=== PATIENT | male | born 1935 | race American Indian/Alaskan Native ===

== ENCOUNTER 2019-04-03 13:51 | Inpatient (IN) | payer MEDICARE, OTHER ==
[2019-04-03] MEDS ORDERED: PIPERACILLIN/TAZOBACTAM 3.375 3.375 GM/50 ML BAG IV ONE (14:22)
[2019-04-03] MEDS ORDERED: SODIUM CHLORIDE 0.9% 1000 ML 1,000 ML IV ONE ×2 (14:22)
--- NOTE | 2019-04-03 14:27 | Emergency Department Report ---
ED General Adult HPI - General Chief complaint: Altered Mental Status Stated complaint: UNRESPONSIVE Time Seen by Provider: 04/03/19 14:07 Source: family Mode of arrival: Stretcher Limitations: Altered Mental Status - History of Present Illness Initial comments: Patient is a 83 years old male with history of advanced dementia, CVA, hypertension and diabetes. Patient is a DO NOT RESUSCITATE, confirmed by his daughters who are resent at bedside and a DO NOT RESUSCITATE paper on file. Patient is brought to the emergency room from respite care for evaluation of altered mental status, decreased blood pressure, fever and low oxygen saturation. Symptoms started last night. Patient found to have a blood pressure of 72/36, heart rate of 136 and initial oxygen saturation of 78% improved to 100% on a nonrebreather. Patient found to be in septic shock. I thoroughly discuss the patient critical condition with his daughters. Both daughters advised not to intubate, no CPR and no shocking. They stated that they only want fluids and antibiotic and comfort measures. Patient is started on normal saline, Zosyn, Tylenol and continued on and nonrebreather. Severity scale (0 -10): 0 - Related Data Allergies Allergy/AdvReac Type Severity Reaction Status Date / Time levofloxacin [From Levaquin] Allergy Rash Verified 04/03/19 13:53 ED Review of Systems ROS: Stated complaint: UNRESPONSIVE Other details as noted in HPI Comment: Unobtainable due to pts medical conditions ED Past Medical Hx - Past Medical History Previous Medical History?: Yes Hx Hypertension: Yes Hx CVA: Yes (x 2. 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 - Surgical History Past Surgical History?: Yes Additional Surgical History: family states cannot remember what for ED Physical Exam - General Limitations: Altered Mental Status General appearance: obtunded - Head Head exam: Present: atraumatic, normocephalic, normal inspection - Eye Eye exam: Present: normal appearance - ENT ENT exam: Present: mucous membranes dry - Neck Neck exam: Present: normal inspection - Respiratory Respiratory exam: Present: normal lung sounds bilaterally - Cardiovascular Cardiovascular Exam: Present: tachycardia - GI/Abdominal GI/Abdominal exam: Present: soft, normal bowel sounds. Absent: distended, tenderness, guarding, rebound, rigid, organomegaly, mass, bruit, pulsatile mass, hernia - exam: Present: normal inspection. Absent: testicular tenderness, urethral discharge, scrotal swelling, circumcision External exam: Present: normal external exam - Extremities Exam Extremities exam: Present: normal inspection - Neurological Exam Neurological exam: Present: altered - Skin Skin exam: Present: warm, dry, intact ED Course Vital Signs 04/03/19 04/03/19 04/03/19 13:56 14:00 14:08 Temperature 101.2 F H Pulse Rate 141 H 147 H 139 H Respiratory 28 H 27 H 26 H Rate Blood Pressure O2 Sat by Pulse Oximetry 04/03/19 04/03/19 04/03/19 14:15 14:30 14:45 Temperature Pulse Rate 138 H 136 H 140 H Respiratory 32 H 28 H 25 H Rate Blood Pressure 73/34 73/34 68/39 O2 Sat by Pulse 100 86 94 Oximetry 04/03/19 04/03/19 04/03/19 15:00 15:16 15:30 Temperature Pulse Rate 139 H 140 H 142 H Respiratory 24 26 H 26 H Rate Blood Pressure 68/39 72/32 72/32 O2 Sat by Pulse 98 100 Oximetry 04/03/19 04/03/19 16:40 16:41 Temperature 100.0 F H Pulse Rate 137 H Respiratory 25 H Rate Blood Pressure 68/44 O2 Sat by Pulse 100 Oximetry - Consultations Consultation #1: 04/03/19 18:13 I discussed the patient with Dr. Prieto from [facility]. She advised that patient can be admitted to [facility] and she will follow up with the patient in the morning for further management. - Central Line Placement Right Femoral Consent Obtained: emergent situation Time Out Performed: Yes Patient Placed on Monitor/Pulse Ox: Yes Prep: mask, gown, gloves Central Line Prep: Povidone-Iodine 1%, Chlorhexidine scrub, sterile drapes applied Local Anesthesia Used: Lidocaine 2% Central Line Lumen Inserted: triple Central Line Position: good blood return, all ports aspirated, flus, sutured in place with 2-0 Dressing Applied: Tegaderm, sterile gauze/tape Patient Tolerated Procedure: well, no complications Complications: none ED Medical Decision Making - Lab Data Result diagrams: 04/03/19 15:22 04/03/19 15:22 - EKG Data -: EKG Interpreted by Me EKG shows normal: sinus rhythm Rate: tachycardia - Radiology Data Radiology results: report reviewed - Medical Decision Making Patient is a 83 years old male with history of advanced dementia, CVA, hype rtension and diabetes. Patient is a DO NOT RESUSCITATE, confirmed by his daughters who are resent at bedside and a DO NOT RESUSCITATE paper on file. Patient is brought to the emergency room from respite care for evaluation of altered mental status, decreased blood pressure, fever and low oxygen sa turation. Symptoms started last night. Patient found to have a blood pressure of 72/36, heart rate of 136 and initial oxygen saturation of 78% improved to 100% on a nonrebreather. Patient found to be in septic shock. I thoroughly discuss the patient critical condition with his daughters. Both daughters advised not to intubate, no CPR and no shocking. They stated that they only want fluids and antibiotic and comfort measures. Patient is started on normal saline, Zosyn, Tylenol and continued on and nonrebreather. Labs reviewed and showed hypernatremia, acute renal failure. Patient continued on normal saline with improvement in blood pressure. Patient lactic acid is 9. I discussed the patient with Dr. Zelaya, he agreed to admit the patient to medical service and further management. Critical Care Time: Yes Critical care time in (mins) excluding proc time.: 45 Critical care attestation.: If time is entered above; I have spent that time in minutes in the direct care of this critically ill patient, excluding procedure time. ED Disposition Clinical Impression: Sepsis, Hypernatremia, Acute on chronic renal failure Disposition: OP ADMIT IP TO THIS HOSP Is pt being admited?: Yes Condition: Stable
[2019-04-03] MEDS ORDERED: ACETAMINOPHEN 500 MG TAB PO ONE (14:29)
[2019-04-03] MEDS ORDERED: ACETAMINOPHEN 650 MG RECT SUPP PR ONE (14:35)
[2019-04-03 15:51] LABS: Mean Corpuscular HGB Conc 29 % (32-34); Mean Corpuscular Volume 75 fl (84-94); Platelet Count 144 K/mm3 (140-440); Red Blood Count 4.15 M/mm3 (3.65-5.03); Red Cell Distribution Width 18.2 % (13.2-15.2)
[2019-04-03 15:58] LABS: Calcium 8.7 mg/dL (8.4-10.2)
[2019-04-03 16:00] LABS: Hematocrit 31.2 % (35.5-45.6); Hemoglobin 9.2 gm/dl (11.8-15.2)
[2019-04-03 16:10] LABS: Albumin 3.1 g/dL (3.9-5); Bilirubin,Direct 0.4 mg/dL (0-0.2)
--- NOTE | 2019-04-03 17:01 | XRay Report ---
CHEST 1 VIEW INDICATION / CLINICAL INFORMATION: sepsis. COMPARISON: None available. FINDINGS: SUPPORT DEVICES: None. HEART / MEDIASTINUM: No significant abnormality. LUNGS / PLEURA: Patchy ill-defined airspace density throughout both lower lungs. Signer Name: Selwyn Polanco MD Signed: 04/03/2019 4:57 PM Workstation Name: [id number]
[2019-04-03 19:08] LABS: Eosinophils % (Manual) 0 % (0.0-4.3); Monocytes % (Manual) 0 % (0.0-7.3)
[2019-04-03 19:09] LABS: Band Neutrophils # (Manual) 0.6 K/mm3; Total Cells Counted 100
[2019-04-03 19:10] LABS: Anisocytosis 1+
[2019-04-03 19:11] LABS: Large Platelets Few; Platelet Estimate Consistent w Auto; Tear Drop Cells Rare
[2019-04-03] MEDS ORDERED: NORepinephrine/NS 4 MG-250 ML 4 MG/250 ML BAG IV ONE (19:38)
[2019-04-03] MEDS: NORepinephrine/NS 4 MG-250 ML 4 MG/250 ML BAG IV SCH (19:42)
[2019-04-03] MEDS ORDERED: ONDANSETRON 4 MG/2 ML INJ IV PRN (19:48)
[2019-04-03] MEDS ORDERED: ACETAMINOPHEN 325 MG TAB PO PRN (19:48)
[2019-04-03] MEDS ORDERED: oxyCODONE /ACETAMINOPHEN 5-325MG TAB PO PRN (19:48)
[2019-04-03] MEDS ORDERED: HYDROmorphone 1 MG/1 ML INJ IV PRN (19:48)
--- NOTE | 2019-04-03 19:48 | History and Physical Report ---
History of Present Illness Date of examination: 04/03/19 Date of admission: 04/03/19 16:46 Chief complaint: Decreased responsiveness since last night History of present illness: 83-year-old male with cerebrovascular accident, hypertension hyperlipidemia, diabetes and chronic kidney disease comes in for decreased mental status feeling very weak and decreased responsiveness. In the emergency room patient's blood pressure was very low and oxygen saturations were around 78%. Patient also had a high heart rate of 136 and fever. Fever started yest erday. Daughter is at bedside and wants DO NOT RESUSCITATE status but gives if necessary. No chest pain. No shortness of breath. Patient with decreased responsiveness. Past Medical History Previous Medical History?: Yes Hypertension: Yes CVA: He is x 2. 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 Surgical History Past Surgical History?: Yes Social history no smoking or drugs Family history Htn Review systems ROS: Stated complaint: UNRESPONSIVE Other details as noted in HPI Comment: Unobtainable due to pts medical conditions Medications and Allergies Allergies Allergy/AdvReac Type Severity Reaction Status Date / Time levofloxacin [From Levaquin] Allergy Rash Verified 04/03/19 13:53 Home Medications Medication Instructions Recorded Confirmed Last Taken Type Aspirin 325 mg PO QDAY 04/03/19 04/03/19 Unknown History AtorvaSTATin [Lipitor] 40 mg PO QHS 04/03/19 04/03/19 Unknown History B12/Iodin/Mag/Zinc/Haritha/Yyhm232 1 each PO QDAY 04/03/19 04/03/19 Unknown History [Adrenoid Capsule] Guaifenesin/Pseudoephedrne HCl 1 each PO BID 04/03/19 04/03/19 Unknown History [Mucinex D ER 600-60 mg Tablet] Hyoscyamine Subl [Levsin Sl 0.125 0.125 mg SL Q4HR PRN 04/03/19 04/03/19 Unknown History TAB] Losartan [Cozaar] 25 mg PO QDAY 04/03/19 04/03/19 Unknown History Sertraline [Zoloft] 50 mg PO QDAY 04/03/19 04/03/19 Unknown History Vit D3/Folic Acid/B2/B6/B12 1 each PO QDAY 04/03/19 04/03/19 Unknown History [Folgard Tablet] Active Meds: Active Medications Norepinephrine (Levophed Drip 4 Mg/Ns 250 Ml) 4 mg in 250 mls @ 7.5 mls/hr IV TITR LEVAR; Protocol Last Admin: 04/03/19 19:42 Dose: 4 mcg/min, 15 mls/hr Documented by: Exam - Constitutional Vitals: Temp Pulse Resp BP Pulse Ox 100.0 F H 138 H 32 H 72/39 99 04/03/19 16:40 04/03/19 19:15 04/03/19 19:15 04/03/19 19:15 04/03/19 18:45 General appearance: Present: no acute distress, well-nourished - EENT Eyes: Present: PERRL ENT: hearing intact, clear oral mucosa - Neck Neck: Present: supple, normal ROM - Respiratory Respiratory effort: normal Respiratory: bilateral: CTA - Cardiovascular Heart rate: 76 Rhythm: regular Heart Sounds: Present: S1 & S2. Absent: rub, click - Extremities Extremities: no ischemia, pulses intact, pulses symmetrical, No edema Peripheral Pulses: within normal limits - Abdominal General gastrointestinal: Present: soft, non-tender, non-distended, normal bowel sounds Male genitourinary: Present: normal - Integumentary Integumentary: Present: clear, warm, dry - Musculoskeletal Musculoskeletal: gait normal, strength equal bilaterally - Psychiatric Psychiatric: appropriate mood/affect, intact judgment & insight - Neurologic Neurologic: CNII-XII intact, moves all extremities - Allied Health Allied health notes reviewed: nursing, case management (hospital. He is) Results - Labs CBC & Chem 7: 04/03/19 15:22 04/03/19 15:22 Labs: Laboratory Last Values WBC 12.1 K/mm3 (4.5-11.0) H 04/03/19 15:22 RBC 4.15 M/mm3 (3.65-5.03) 04/03/19 15:22 Hgb 9.2 gm/dl (11.8-15.2) L 04/03/19 15:22 Hct 31.2 % (35.5-45.6) L 04/03/19 15:22 MCV 75 fl (84-94) L 04/03/19 15:22 MCH 22 pg (28-32) L 04/03/19 15:22 MCHC 29 % (32-34) L 04/03/19 15:22 RDW 18.2 % (13.2-15.2) H 04/03/19 15:22 Plt Count 144 K/mm3 (140-440) 04/03/19 15:22 Lymph % (Auto) Fixture Repairer Fabricator 04/03/19 15:22 [place] % (Auto) Fixture Repairer Fabricator 04/03/19 15:22 Eos % (Auto) Fixture Repairer Fabricator 04/03/19 15:22 Baso % (Auto) Fixture Repairer Fabricator 04/03/19 15:22 Lymph # Fixture Repairer Fabricator 04/03/19 15:22 [place] # Fixture Repairer Fabricator 04/03/19 15:22 Eos # Fixture Repairer Fabricator 04/03/19 15:22 Baso # Fixture Repairer Fabricator 04/03/19 15:22 Add Manual Diff Complete 04/03/19 15:22 Total Counted 100 04/03/19 15:22 Seg Neutrophils % Fixture Repairer Fabricator 04/03/19 15:22 Seg Neuts % (Manual) 84.0 % (40.0-70.0) H 04/03/19 15:22 Band Neutrophils % 5.0 % 04/03/19 15:22 Lymphocytes % (Manual) 4.0 % (13.4-35.0) L 04/03/19 15:22 Reactive Lymphs % (Man) 0 % 04/03/19 15:22 Monocytes % (Manual) 0 % (0.0-7.3) 04/03/19 15:22 Eosinophils % (Manual) 0 % (0.0-4.3) 04/03/19 15:22 Basophils % (Manual) 1.0 % (0.0-1.8) 04/03/19 15:22 Metamyelocytes % 6.0 % 04/03/19 15:22 Myelocytes % 0 % 04/03/19 15:22 Promyelocytes % 0 % 04/03/19 15:22 Blast Cells % 0 % 04/03/19 15:22 Nucleated RBC % Not Reportable 04/03/19 15:22 Seg Neutrophils # Fixture Repairer Fabricator 04/03/19 15:22 Seg Neutrophils # Man 10.2 K/mm3 (1.8-7.7) H 04/03/19 15:22 Band Neutrophils # 0.6 K/mm3 04/03/19 15:22 Lymphocytes # (Manual) 0.5 K/mm3 (1.2-5.4) L 04/03/19 15:22 Abs React Lymphs (Man) 0.0 K/mm3 04/03/19 15:22 Monocytes # (Manual) 0.0 K/mm3 (0.0-0.8) 04/03/19 15:22 Eosinophils # (Manual) 0.0 K/mm3 (0.0-0.4) 04/03/19 15:22 Basophils # (Manual) 0.1 K/mm3 (0.0-0.1) 04/03/19 15:22 Metamyelocytes # 0.7 K/mm3 04/03/19 15:22 Myelocytes # 0.0 K/mm3 04/03/19 15:22 Promyelocytes # 0.0 K/mm3 04/03/19 15:22 Blast Cells # 0.0 K/mm3 04/03/19 15:22 WBC Morphology Not Reportable 04/03/19 15:22 Hypersegmented Neuts Not Reportable 04/03/19 15:22 Hyposegmented Neuts Not Reportable 04/03/19 15:22 Hypogranular Neuts Not Reportable 04/03/19 15:22 Smudge Cells Not Reportable 04/03/19 15:22 Toxic Granulation Not Reportable 04/03/19 15:22 Toxic Vacuolation Not Reportable 04/03/19 15:22 Dohle Bodies Not Reportable 04/03/19 15:22 Pelger-Huet Anomaly Not Reportable 04/03/19 15:22 Manisha Rods Not Reportable 04/03/19 15:22 Platelet Estimate Consistent w auto 04/03/19 15:22 Clumped Platelets Not Reportable 04/03/19 15:22 Plt Clumps, EDTA Not Reportable 04/03/19 15:22 Large Platelets Few 04/03/19 15:22 Giant Platelets Not Reportable 04/03/19 15:22 Platelet Satelliting Not Reportable 04/03/19 15:22 Plt Morphology Comment Not Reportable 04/03/19 15:22 RBC Morphology Not Reportable 04/03/19 15:22 Dimorphic RBCs Not Reportable 04/03/19 15:22 Polychromasia Not Reportable 04/03/19 15:22 Hypochromasia Not Reportable 04/03/19 15:22 Poikilocytosis Not Reportable 04/03/19 15:22 Anisocytosis 1+ 04/03/19 15:22 Microcytosis Not Reportable 04/03/19 15:22 Macrocytosis Not Reportable 04/03/19 15:22 Spherocytes Not Reportable 04/03/19 15:22 Pappenheimer Bodies Not Reportable 04/03/19 15:22 Sickle Cells Not Reportable 04/03/19 15:22 Target Cells Not Reportable 04/03/19 15:22 Tear Drop Cells Rare 04/03/19 15:22 Ovalocytes Not Reportable 04/03/19 15:22 Helmet Cells Not Reportable 04/03/19 15:22 [employer] Bodies Not Reportable 04/03/19 15:22 [place] Rings Not Reportable 04/03/19 15:22 Toney Cells Not Reportable 04/03/19 15:22 Bite Cells Not Reportable 04/03/19 15:22 Crenated Cell Not Reportable 04/03/19 15:22 Elliptocytes Few 04/03/19 15:22 Acanthocytes (Spur) Not Reportable 04/03/19 15:22 Rouleaux Not Reportable 04/03/19 15:22 Hemoglobin C Crystals Not Reportable 04/03/19 15:22 Schistocytes Not Reportable 04/03/19 15:22 Malaria parasites Not Reportable 04/03/19 15:22 Enrique Bodies Not Reportable 04/03/19 15:22 Hem Pathologist Commnt No 04/03/19 15:22 Sodium 148 mmol/L (137-145) H 04/03/19 15:22 Potassium 4.3 mmol/L (3.6-5.0) 04/03/19 15:22 Chloride 108.1 mmol/L (98-107) H 04/03/19 15:22 Carbon Dioxide 19 mmol/L (22-30) L 04/03/19 15:22 Anion Gap 25 mmol/L 04/03/19 15:22 BUN 40 mg/dL (9-20) H 04/03/19 15:22 Creatinine 3.5 mg/dL (0.8-1.5) H 04/03/19 15:22 Estimated GFR 17 ml/min 04/03/19 15:22 BUN/Creatinine Ratio 11 % 04/03/19 15:22 Glucose 104 mg/dL (75-100) H 04/03/19 15:22 POC Glucose 78 (70-105) 04/03/19 14:05 Lactic Acid 9.40 mmol/L (0.7-2.0) H* 04/03/19 17:43 Calcium 8.7 mg/dL (8.4-10.2) 04/03/19 15:22 Total Bilirubin 0.70 mg/dL (0.1-1.2) 04/03/19 15:22 Direct Bilirubin 0.4 mg/dL (0-0.2) H 04/03/19 15:22 Indirect Bilirubin 0.3 mg/dL 04/03/19 15:22 AST 296 units/L (5-40) H 04/03/19 15:22 ALT 102 units/L (7-56) H 04/03/19 15:22 Alkaline Phosphatase 218 units/L (35-129) H 04/03/19 15:22 Total Protein 6.7 g/dL (6.3-8.2) 04/03/19 15:22 Albumin 3.1 g/dL (3.9-5) L 04/03/19 15:22 Albumin/Globulin Ratio 0.9 % 04/03/19 15:22 Short CBC 04/03/19 Range/Units 15:22 WBC 12.1 H (4.5-11.0) K/mm3 Hgb 9.2 L (11.8-15.2) gm/dl Hct 31.2 L (35.5-45.6) % Plt Count 144 (140-440) K/mm3 BMP 04/03/19 15:22 Sodium 148 H Potassium 4.3 Chloride 108.1 H Carbon Dioxide 19 L BUN 40 H Creatinine 3.5 H Glucose 104 H Calcium 8.7 Liver Function 04/03/19 Range/Units 15:22 Total Bilirubin 0.70 (0.1-1.2) mg/dL Direct Bilirubin 0.4 H (0-0.2) mg/dL AST 296 H (5-40) units/L ALT 102 H (7-56) units/L Alkaline Phosphatase 218 H (35-129) units/L Albumin 3.1 L (3.9-5) g/dL - Imaging and Cardiology EKG: report reviewed Chest x-ray: report reviewed Imaging and Cardiology: Chest x-ray LUNGS / PLEURA: Patchy ill-defined airspace density throughout both lower lungs. Assessment and Plan Assessment and plan: critical care time 40 minutes Advance Directives: Yes (DO NOT RESUSCITATE) VTE prophylaxis?: Chemical Plan of care discussed with patient/family: Yes - Patient Problems (1) Sepsis Current Visit: Yes Status: Acute Plan to address problem: secondary to bilateral pneumonia IV fluids Started IV cefepime and IV vancomycin IV Levophed started (2) Acute on chronic renal failure Current Visit: Yes Status: Acute (3) Hypernatremia Current Visit: Yes Status: Acute Plan to address problem: D5W for now (4) Hypotension Current Visit: Yes Status: Acute Qualifiers: Hypotension type: other hypotension type Qualified Code(s): I95.89 - Other hypotension Plan to address problem: Secondary to sepsis IV fluids and IV Pressors (5) CVA (cerebral vascular accident) Current Visit: Yes Status: Chronic Qualifiers: Laterality of affected vessel: bilateral Plan to address problem: Supportive care (6) Type 2 diabetes mellitus Current Visit: Yes Status: Chronic Qualifiers: Diabetes mellitus snf insulin use: unspecified buttermaker continuous churn insulin use status Plan to address problem: Sliding scale insulin coverage (7) Elevated lactic acid level Current Visit: Yes Status: Acute Plan to address problem: Secondary to sepsis (8) Hypertension Current Visit: Yes Status: Chronic Qualifiers: Hypertension type: essential hypertension Qualified Code(s): I10 - Essential (primary) hypertension Plan to address problem: Patient is hypotensives hold antihypertensives (9) DVT prophylaxis Current Visit: Yes Status: Acute Plan to address problem: Heparin and GI prophylaxis started
[2019-04-03] MEDS ORDERED: D5W/0.9% NACL 1,000 ML IV SCH (20:00)
[2019-04-03] MEDS ORDERED: CEFEPIME/NS 1 GM/100 ML 1 GM/100 ML BAG IV SCH ×2 (21:00→22:00)
[2019-04-03] MEDS ORDERED: VANCOMYCIN PHARMACY TO DOSE IV SCH (21:00)
[2019-04-03] MEDS ORDERED: VANCOMYCIN 1,250 MG in SODIUM CHLORIDE 0.9% 250ML 250 ML IV ONE (21:00)
[2019-04-03] MEDS ORDERED: DEXTROSE 5% IN WATER 1,000 ML IV SCH (22:00)
[2019-04-03] MEDS: FAMOTIDINE 20 MG/2 ML INJ IV SCH (23:11)
[2019-04-03] MEDS: INSULIN LISPRO 100 UNIT/ML SUB-Q SCH (23:28)
[2019-04-04] MEDS ORDERED: SODIUM CHLORIDE 0.9% 500 ML 500 ML IV ONE (00:26)
[2019-04-04] MEDS: NORepinephrine/NS 4 MG-250 ML 4 MG/250 ML BAG IV SCH ×4 (00:47→08:29)
[2019-04-04] MEDS: PHENYLEPHRINE 100 MG in SODIUM CHLORIDE 0.9% 90 ML IV SCH ×2 (01:52→22:17)
[2019-04-04] MEDS: INSULIN LISPRO 100 UNIT/ML SUB-Q SCH ×3 (05:30→18:36)
[2019-04-04 05:49] LABS: Mean Corpuscular HGB Conc 30 % (32-34); Mean Corpuscular Volume 74 fl (84-94); Platelet Count 150 K/mm3 (140-440); Red Cell Distribution Width 18.4 % (13.2-15.2)
[2019-04-04 05:59] LABS: Hematocrit 30.9 % (35.5-45.6); Hemoglobin 9.2 gm/dl (11.8-15.2)
[2019-04-04 06:01] LABS: Albumin 2.9 g/dL (3.9-5); Calcium 7.5 mg/dL (8.4-10.2)
[2019-04-04 06:49] LABS: Anisocytosis 1+; Band Neutrophils # (Manual) 0.5 K/mm3; Basophils % (Manual) 0 % (0.0-1.8); Eosinophils % (Manual) 0 % (0.0-4.3); Platelet Estimate Consistent w Auto; Total Cells Counted 200
--- NOTE | 2019-04-04 08:51 | Progress Note ---
Assessment and Plan Assessment and plan: --Sepsis Shock Current Visit: Yes Status: Acute secondary to bilateral pneumonia IV fluids Started, IV cefepime and IV vancomycin IV Levophed started --Bilateral pneumonia ; Current Visit: Yes Status: Acute Empiric IV antibiotics, follow cultures Oxygen titrated to O2 sats more than 90%. ID evaluation if needed --lactic acidosis: Secondary to sepsis closely monitor. --Transaminitis; Unknown baseline probably secondary to hypo perfusion Closely monitor liver function tests. --Acute on chronic renal failure Closely monitor renal function avoid nephrotoxins --Severe Malnutrition; Nutrition supplements and supportive care -- Hypernatremia Current Visit: Yes Status: Acute D5W for now, improved , closely monitor --DNR status Monitor clinically and adjust management as needed. Patient is critically ill. poor Prognosis Follow-up consults and recommendations Critical care time 35 minutes History Interval history: Patient seen and examined medical records reviewed Patient admitted with septic shock, sepsis, bilateral pneumonia On multiple vasopressors Patient looks critically ill, minimally communicative Vital signs reviewed Hospitalist Physical - Constitutional Vitals: Temp Pulse Resp BP Pulse Ox 99.3 F 144 H 24 84/51 92 04/03/19 21:16 04/04/19 08:30 04/04/19 08:30 04/04/19 08:30 04/04/19 08:30 General appearance: Present: mild distress, well-nourished - EENT Eyes: Present: PERRL, EOM intact - Neck Neck: Present: supple, normal ROM - Respiratory Respiratory effort: normal Respiratory: bilateral: diminished, rhonchi, negative: rales, wheezing - Cardiovascular Rhythm: regular Heart Sounds: Present: S1 & S2 - Extremities Extremities: no ischemia, No edema - Abdominal General gastrointestinal: soft, non-tender, non-distended, normal bowel sounds - Integumentary Integumentary: Present: clear, warm - Psychiatric Psychiatric: cooperative - Neurologic Neurologic: moves all extremities Results - Labs CBC & Chem 7: 04/04/19 05:00 04/04/19 05:00 Labs: Laboratory Last Values WBC 31.0 K/mm3 (4.5-11.0) H 04/04/19 05:00 RBC 4.20 M/mm3 (3.65-5.03) 04/04/19 05:00 Hgb 9.2 gm/dl (11.8-15.2) L 04/04/19 05:00 Hct 30.9 % (35.5-45.6) L 04/04/19 05:00 MCV 74 fl (84-94) L 04/04/19 05:00 MCH 22 pg (28-32) L 04/04/19 05:00 MCHC 30 % (32-34) L 04/04/19 05:00 RDW 18.4 % (13.2-15.2) H 04/04/19 05:00 Plt Count 150 K/mm3 (140-440) 04/04/19 05:00 Lymph % (Auto) [facility] 04/04/19 05:00 Grant % (Auto) [facility] 04/04/19 05:00 Eos % (Auto) [facility] 04/04/19 05:00 Baso % (Auto) [facility] 04/04/19 05:00 Lymph # [facility] 04/04/19 05:00 Grant # [facility] 04/04/19 05:00 Eos # [facility] 04/04/19 05:00 Baso # [facility] 04/04/19 05:00 Add Manual Diff Complete 04/04/19 05:00 Total Counted 200 04/04/19 05:00 Seg Neutrophils % [facility] 04/04/19 05:00 Seg Neuts % (Manual) 92.5 % (40.0-70.0) H 04/04/19 05:00 Band Neutrophils % 1.5 % 04/04/19 05:00 Lymphocytes % (Manual) 4.0 % (13.4-35.0) L 04/04/19 05:00 Reactive Lymphs % (Man) 0 % 04/04/19 05:00 Monocytes % (Manual) 2.0 % (0.0-7.3) 04/04/19 05:00 Eosinophils % (Manual) 0 % (0.0-4.3) 04/04/19 05:00 Basophils % (Manual) 0 % (0.0-1.8) 04/04/19 05:00 Metamyelocytes % 0 % 04/04/19 05:00 Myelocytes % 0 % 04/04/19 05:00 Promyelocytes % 0 % 04/04/19 05:00 Blast Cells % 0 % 04/04/19 05:00 Nucleated RBC % Not Reportable 04/04/19 05:00 Seg Neutrophils # [facility] 04/04/19 05:00 Seg Neutrophils # Man 28.7 K/mm3 (1.8-7.7) H 04/04/19 05:00 Band Neutrophils # 0.5 K/mm3 04/04/19 05:00 Lymphocytes # (Manual) 1.2 K/mm3 (1.2-5.4) 04/04/19 05:00 Abs React Lymphs (Man) 0.0 K/mm3 04/04/19 05:00 Monocytes # (Manual) 0.6 K/mm3 (0.0-0.8) 04/04/19 05:00 Eosinophils # (Manual) 0.0 K/mm3 (0.0-0.4) 04/04/19 05:00 Basophils # (Manual) 0.0 K/mm3 (0.0-0.1) 04/04/19 05:00 Metamyelocytes # 0.0 K/mm3 04/04/19 05:00 Myelocytes # 0.0 K/mm3 04/04/19 05:00 Promyelocytes # 0.0 K/mm3 04/04/19 05:00 Blast Cells # 0.0 K/mm3 04/04/19 05:00 WBC Morphology Not Reportable 04/04/19 05:00 Hypersegmented Neuts Not Reportable 04/04/19 05:00 Hyposegmented Neuts Not Reportable 04/04/19 05:00 Hypogranular Neuts Not Reportable 04/04/19 05:00 Smudge Cells Not Reportable 04/04/19 05:00 Toxic Granulation Not Reportable 04/04/19 05:00 Toxic Vacuolation Not Reportable 04/04/19 05:00 Dohle Bodies Not Reportable 04/04/19 05:00 Pelger-Huet Anomaly Not Reportable 04/04/19 05:00 Manisha Rods Not Reportable 04/04/19 05:00 Platelet Estimate Consistent w auto 04/04/19 05:00 Clumped Platelets Not Reportable 04/04/19 05:00 Plt Clumps, EDTA Not Reportable 04/04/19 05:00 Large Platelets Not Reportable 04/04/19 05:00 Giant Platelets Not Reportable 04/04/19 05:00 Platelet Satelliting Not Reportable 04/04/19 05:00 Plt Morphology Comment Not Reportable 04/04/19 05:00 RBC Morphology Not Reportable 04/04/19 05:00 Dimorphic RBCs Not Reportable 04/04/19 05:00 Polychromasia Not Reportable 04/04/19 05:00 Hypochromasia Not Reportable 04/04/19 05:00 Poikilocytosis Not Reportable 04/04/19 05:00 Anisocytosis 1+ 04/04/19 05:00 Microcytosis Not Reportable 04/04/19 05:00 Macrocytosis Not Reportable 04/04/19 05:00 Spherocytes Not Reportable 04/04/19 05:00 Pappenheimer Bodies Not Reportable 04/04/19 05:00 Sickle Cells Not Reportable 04/04/19 05:00 Target Cells Not Reportable 04/04/19 05:00 Tear Drop Cells Not Reportable 04/04/19 05:00 Ovalocytes Not Reportable 04/04/19 05:00 Helmet Cells Not Reportable 04/04/19 05:00 Edgar-Pima Bodies Not Reportable 04/04/19 05:00 [place] Rings Not Reportable 04/04/19 05:00 Toney Cells Not Reportable 04/04/19 05:00 Bite Cells Not Reportable 04/04/19 05:00 Crenated Cell Not Reportable 04/04/19 05:00 Elliptocytes Not Reportable 04/04/19 05:00 Acanthocytes (Spur) Not Reportable 04/04/19 05:00 Rouleaux Not Reportable 04/04/19 05:00 Hemoglobin C Crystals Not Reportable 04/04/19 05:00 Schistocytes Not Reportable 04/04/19 05:00 Malaria parasites Not Reportable 04/04/19 05:00 Enrique Bodies Not Reportable 04/04/19 05:00 Hem Pathologist Commnt No 04/04/19 05:00 Sodium 145 mmol/L (137-145) 04/04/19 05:00 Potassium 4.5 mmol/L (3.6-5.0) 04/04/19 05:00 Chloride 107.0 mmol/L (98-107) 04/04/19 05:00 Carbon Dioxide 16 mmol/L (22-30) L 04/04/19 05:00 Anion Gap 27 mmol/L 04/04/19 05:00 BUN 53 mg/dL (9-20) H 04/04/19 05:00 Creatinine 4.3 mg/dL (0.8-1.5) H 04/04/19 05:00 Estimated GFR 16 ml/min 04/04/19 05:00 BUN/Creatinine Ratio 12 % 04/04/19 05:00 Glucose 195 mg/dL (75-100) H 04/04/19 05:00 POC Glucose 128 (70-105) H 04/04/19 04:51 Hemoglobin A1c 6.5 % (4-6) H 04/03/19 21:52 Lactic Acid 6.00 mmol/L (0.7-2.0) H* 04/04/19 05:00 Calcium 7.5 mg/dL (8.4-10.2) L 04/04/19 05:00 Total Bilirubin 0.60 mg/dL (0.1-1.2) 04/04/19 05:00 Direct Bilirubin 0.4 mg/dL (0-0.2) H 04/03/19 15:22 Indirect Bilirubin 0.3 mg/dL 04/03/19 15:22 AST 277 units/L (5-40) H 04/04/19 05:00 ALT 81 units/L (7-56) H 04/04/19 05:00 Alkaline Phosphatase 147 units/L (35-129) H 04/04/19 05:00 Total Protein 6.2 g/dL (6.3-8.2) L 04/04/19 05:00 Albumin 2.9 g/dL (3.9-5) L 04/04/19 05:00 Albumin/Globulin Ratio 0.9 % 04/04/19 05:00 Active Medications - Current Medications Current Medications: Generic Name Dose Route Start Last Admin Trade Name Freq PRN Reason Stop Dose Admin Acetaminophen 650 mg 04/03/19 19:48 Tylenol PO Q4H PRN Pain MILD(1-3)/Fever >100.5/VIDES Famotidine 10 mg 04/03/19 22:00 04/03/19 23:11 Pepcid IV 10 mg BID LEVAR Administration Hydromorphone HCl 0.25 mg 04/03/19 19:48 Dilaudid IV Q3H PRN Pain, Moderate (4-6) Norepinephrine 4 mg in 250 mls @ 7.5 mls/hr 04/03/19 20:00 04/04/19 08:29 Levophed Drip 4 Mg/Ns 250 Ml IV 04/04/19 19:59 30 mcg/min TITR LEVAR 112.5 mls/hr Administration Protocol 2 MCG/MIN Dextrose 1,000 mls @ 150 mls/hr 04/03/19 22:00 04/03/19 23:12 D5w IV 150 mls/hr DIRECT LEVAR Administration Phenylephrine HCl 100 mg/ 100 mls @ 3 mls/hr 04/04/19 01:35 04/04/19 08:30 Sodium Chloride IV 80 mcg/min TITR LEVAR 4.8 mls/hr Titration Protocol 50 MCG/MIN Cefepime HCl 2 gm in 100 mls @ 200 mls/hr 04/04/19 10:00 Cefepime/Ns 2 Gm/100 Ml IV Q24HR LEVAR Protocol Norepinephrine 8 mg/ Sodium 250 mls @ 3.75 mls/hr 04/04/19 09:00 Chloride IV TITR LEVAR Protocol 2 MCG/MIN Insulin Human Lispro 0 unit 04/04/19 00:00 04/04/19 05:30 Humalog SUB-Q Not Given Q6HR LEVAR Protocol Ondansetron HCl 4 mg 04/03/19 19:48 Zofran IV Q8H PRN Nausea And Vomiting Oxycodone/Acetaminophen 1 tab 04/03/19 19:48 Percocet 5/325 PO Q6H PRN Pain, Moderate (4-6) Sodium Chloride 10 ml 04/03/19 22:00 04/03/19 22:51 Sodium Chloride Flush Syringe 10 Ml IV 10 ml BID LEVAR Administration Sodium Chloride 10 ml 04/03/19 19:48 Sodium Chloride Flush Syringe 10 Ml IV PRN PRN LINE FLUSH
--- NOTE | 2019-04-04 09:18 | Consultation ---
History of Present Illness Consult date: 04/04/19 Requesting physician: RADHA MARRERO History of present illness: 83-year-old male with cerebrovascular accident, hypertension hy perlipidemia, diabetes and chronic kidney disease comes in for decreased mental status feeling very weak and decreased responsiveness. In the emergency room patient's blood pressure was very low and oxygen saturations were around 78%. Patient also had a high heart rate of 136 and fever. Fever started yesterday. Admitted to the ICU on 100% NRBM, on norepinephrine and encephalopathic. I have been consulted for critical care management Patient was seen and examined. Vitals, labs, medications, chart and imaging reviewed. Daughter and is at the bedside Medications and Allergies Allergies Allergy/AdvReac Type Severity Reaction Status Date / Time levofloxacin [From Levaquin] Allergy Rash Verified 04/03/19 13:53 Home Medications Medication Instructions Recorded Confirmed Last Taken Type Aspirin 325 mg PO QDAY 04/03/19 04/03/19 Unknown History AtorvaSTATin [Lipitor] 40 mg PO QHS 04/03/19 04/03/19 Unknown History B12/Iodin/Mag/Zinc/Haritha/[id number] 1 each PO QDAY 04/03/19 04/03/19 Unknown History [Adrenoid Capsule] Guaifenesin/Pseudoephedrne HCl 1 each PO BID 04/03/19 04/03/19 Unknown History [Mucinex D ER 600-60 mg Tablet] Hyoscyamine Subl [Levsin Sl 0.125 0.125 mg SL Q4HR PRN 04/03/19 04/03/19 Unknown History TAB] Losartan [Cozaar] 25 mg PO QDAY 04/03/19 04/03/19 Unknown History Sertraline [Zoloft] 50 mg PO QDAY 04/03/19 04/03/19 Unknown History Vit D3/Folic Acid/B2/B6/B12 1 each PO QDAY 04/03/19 04/03/19 Unknown History [Folgard Tablet] Active Meds: Active Medications Acetaminophen (Tylenol) 650 mg PO Q4H PRN PRN Reason: Pain MILD(1-3)/Fever >100.5/VIDES Famotidine (Pepcid) 10 mg IV BID LEVAR Last Admin: 04/03/19 23:11 Dose: 10 mg Documented by: Hydromorphone HCl (Dilaudid) 0.25 mg IV Q3H PRN PRN Reason: Pain, Moderate (4-6) Norepinephrine (Levophed Drip 4 Mg/Ns 250 Ml) 4 mg in 250 mls @ 7.5 mls/hr IV TITR LEVAR; Protocol Stop: 04/04/19 19:59 Last Admin: 04/04/19 08:29 Dose: 30 mcg/min, 112.5 mls/hr Documented by: Dextrose (D5w) 1,000 mls @ 150 mls/hr IV DIRECT LEVAR Last Admin: 04/03/19 23:12 Dose: 150 mls/hr Documented by: Phenylephrine HCl 100 mg/ (Sodium Chloride) 100 mls @ 3 mls/hr IV TITR LEVAR; Protocol Last Titration: 04/04/19 08:30 Dose: 80 mcg/min, 4.8 mls/hr Documented by: Cefepime HCl (Cefepime/Ns 2 Gm/100 Ml) 2 gm in 100 mls @ 200 mls/hr IV Q24HR LEVAR; Protocol Norepinephrine 8 mg/ Sodium (Chloride) 250 mls @ 3.75 mls/hr IV TITR LEVAR; Protocol Insulin Human Lispro (Humalog) 0 unit SUB-Q Q6HR LEVAR; Protocol Last Admin: 04/04/19 05:30 Dose: Not Given Documented by: Ondansetron HCl (Zofran) 4 mg IV Q8H PRN PRN Reason: Nausea And Vomiting Oxycodone/Acetaminophen (Percocet 5/325) 1 tab PO Q6H PRN PRN Reason: Pain, Moderate (4-6) Sodium Chloride (Sodium Chloride Flush Syringe 10 Ml) 10 ml IV BID [facility] Last Admin: 04/03/19 22:51 Dose: 10 ml Documented by: Sodium Chloride (Sodium Chloride Flush Syringe 10 Ml) 10 ml IV PRN PRN PRN Reason: LINE FLUSH Physical Examination Vital signs: Vital Signs Pulse Resp 141 H 28 H 04/03/19 13:56 04/03/19 13:56 General appearance: lethargic, appears uncomfortable, other (tachypnic, chronically ill looking) ENT: oropharynx dry Neck: supple, no lymphadenopathy, no JVD Effort: mildly labored Ascultation: Bilateral: diminished breath sounds, rhonchi Cardiovascular: other (Tachycardia , S1,S2, systolic murmur) Integumentary: normal Extremities: no cyanosis, no edema, pulses normal, no ischemia or petechiae unable to assess other (Unable to assses) Results - Laboratory Findings CBC and BMP: 04/04/19 05:00 04/04/19 05:00 Abnormal lab findings: Abnormal Labs 04/03/19 04/03/19 04/03/19 15:22 15:22 15:22 WBC 12.1 H Hgb 9.2 L Hct 31.2 L MCV 75 L MCH 22 L MCHC 29 L RDW 18.2 H Seg Neuts % (Manual) 84.0 H Lymphocytes % (Manual) 4.0 L Seg Neutrophils # Man 10.2 H Lymphocytes # (Manual) 0.5 L Sodium 148 H Chloride 108.1 H Carbon Dioxide 19 L BUN 40 H Creatinine 3.5 H Glucose 104 H POC Glucose Hemoglobin A1c Lactic Acid Calcium Direct Bilirubin 0.4 H AST 296 H ALT 102 H Alkaline Phosphatase 218 H Total Protein Albumin 3.1 L 04/03/19 04/03/19 04/03/19 15:22 17:43 21:52 WBC Hgb Hct MCV MCH MCHC RDW Seg Neuts % (Manual) Lymphocytes % (Manual) Seg Neutrophils # Man Lymphocytes # (Manual) Sodium Chloride Carbon Dioxide BUN Creatinine Glucose POC Glucose Hemoglobin A1c Lactic Acid 9.20 H* 9.40 H* 7.00 H* Calcium Direct Bilirubin AST ALT Alkaline Phosphatase Total Protein Albumin 04/03/19 04/04/19 04/04/19 21:52 04:51 05:00 WBC Hgb Hct MCV MCH MCHC RDW Seg Neuts % (Manual) Lymphocytes % (Manual) Seg Neutrophils # Man Lymphocytes # (Manual) Sodium Chloride Carbon Dioxide BUN Creatinine Glucose POC Glucose 128 H Hemoglobin A1c 6.5 H Lactic Acid 6.00 H* Calcium Direct Bilirubin AST ALT Alkaline Phosphatase Total Protein Albumin 04/04/19 04/04/19 05:00 05:00 WBC 31.0 H Hgb 9.2 L Hct 30.9 L MCV 74 L MCH 22 L MCHC 30 L RDW 18.4 H Seg Neuts % (Manual) 92.5 H Lymphocytes % (Manual) 4.0 L Seg Neutrophils # Man 28.7 H Lymphocytes # (Manual) Sodium Chloride Carbon Dioxide 16 L BUN 53 H Creatinine 4.3 H Glucose 195 H POC Glucose Hemoglobin A1c Lactic Acid Calcium 7.5 L Direct Bilirubin AST 277 H ALT 81 H Alkaline Phosphatase 147 H Total Protein 6.2 L Albumin 2.9 L - Diagnostic Findings Chest x-ray: image reviewed (right lower lobe infiltrate) Assessment and Plan Severe sepsis with septic shock Metabolic/lactic acidosis Acute on chronic renal failure Acute and chronic toxic-metabolic encephaloapthy GNR bacteremia/sepsis PLAN - Wean vasopressor support for MAP>65, currently on norepinephrine at maximal doses With the tachycardia will stop norepinephrine and preferentially use neosynephrine and vasopressin for hemodynamic support -Volume resuscitation per sepsis protocol, patient is old and may have some cardiac dysfunction, cautious administration of fluids -Severe sepsis protocol -Place small bowel feeding tube for enteric nutrition -RD consult placed -Volume resuscitation per sepsis protocol -Antibiotics- Cefepime at this time, follow up cultures, de-escalate and adjust based on LUIS/sensitivities -ID consult -Aspiration precautions, HOB>40 degrees -ABG now -If needed, BIPAP for work of breathing -CXR in am -CBC, BMP and lactic acid at 6pm -VTE prophylaxis -Stress ulcer prophylaxis - Accuchecks with glycemic control for SSI (While critically ill target blood glucose of 140-180 mg/dL; avoid hypoglycemia) - mobility protocol for pressure ulcer prevention - Monitor hemodynamics closely -Monitor electrolyte profile closely and replete as indicated -Avoid nephrotoxins, renally dose all medications -Once off vasopressor support, discontinue the right femoral CVC CONDITION: CRITICAL PROGNOSIS: GUARDED CODE STATUS AND/DNR/DNI Discussed goals of care extensively with [facility] patient's daughter and at the bedsdie They both want aggressive care, nutritional support, vasopressor support. I also discussed the possibility of renal replacement therapy- they will both address that if there is a recommendation from renal The high probability of a clinically significant, sudden or life-threatening deterioration of the [cardiac, neurology] system(s) required my full and direct attention, intervention and personal management. The aggregate critical care time was [70] minutes without overlap. Time includes spent on; [x] Data Review and interpretation [x] Patient assessment and monitoring of vital signs [x] Documentation [x] Medication orders and management
[2019-04-04] MEDS ORDERED: CEFEPIME/NS 2 GM/100 ML 2 GM/100 ML BAG IV SCH (10:00)
[2019-04-04] MEDS ORDERED: LACTATED RINGERS 500 ML IV SCH (10:00)
[2019-04-04] MEDS ORDERED: VASOPRESSIN 20 UNIT in SODIUM CHLORIDE 0.9% 100 ML IV SCH (10:00)
[2019-04-04] MEDS ORDERED: D5W/0.45% NACL 1,000 ML IV SCH (10:00)
[2019-04-04] MEDS: NORepinephrine 8 MG in SODIUM CHLORIDE 0.9% 250ML 242 ML IV SCH ×3 (10:55→19:58)
[2019-04-04] MEDS: FAMOTIDINE 20 MG/2 ML INJ IV SCH (10:57)
[2019-04-04] MEDS: HEPARIN 5,000 UNIT/1 ML VIAL SUB-Q SCH ×2 (10:58→21:35)
[2019-04-04] MEDS ORDERED: SODIUM CHLORIDE 0.9% 1000 ML 1,000 ML IV ONE (11:45)
[2019-04-04] MEDS ORDERED: SODIUM BICARBONATE 325 MG TAB FEEDTUBE PRN (14:32)
[2019-04-04] MEDS ORDERED: LIPASE 10,500/PROTEASE 25,000/AMYLASE 43,750 (UNITS) DR CAP FEEDTUBE PRN (14:32)
[2019-04-04] MEDS ORDERED: SIMPLE SYRUP 15 ML FEEDTUBE PRN ×2 (14:32)
--- NOTE | 2019-04-04 15:13 | Consultation ---
History of Present Illness - History of Present Illness 83 year old gentleman medical history significant for hypertension, diabetes mellitus type 2 admitted with complaints of decreased responsiveness also found to be hypotensive and tachycardic markedly elevated lactate level also associated leukocytosis consistent with sepsis patient's labs were significant for acute kidney injury nephrology consulted for same. He was febrile on admission. Family at bedside. Patient has received multiple boluses of fluid, lactic still remains elevated patient has no shortness of breath review of systems Limited due to patient's confusion Medications and Allergies Allergies Allergy/AdvReac Type Severity Reaction Status Date / Time levofloxacin [From Levaquin] Allergy Rash Verified 04/03/19 13:53 Home Medications Medication Instructions Recorded Confirmed Last Taken Type Aspirin 325 mg PO QDAY 04/03/19 04/03/19 Unknown History AtorvaSTATin [Lipitor] 40 mg PO QHS 04/03/19 04/03/19 Unknown History B12/Iodin/Mag/Zinc/Haritha/[id number] 1 each PO QDAY 04/03/19 04/03/19 Unknown History [Adrenoid Capsule] Guaifenesin/Pseudoephedrne HCl 1 each PO BID 04/03/19 04/03/19 Unknown History [Mucinex D ER 600-60 mg Tablet] Hyoscyamine Subl [Levsin Sl 0.125 0.125 mg SL Q4HR PRN 04/03/19 04/03/19 Unknown History TAB] Losartan [Cozaar] 25 mg PO QDAY 04/03/19 04/03/19 Unknown History Sertraline [Zoloft] 50 mg PO QDAY 04/03/19 04/03/19 Unknown History Vit D3/Folic Acid/B2/B6/B12 1 each PO QDAY 04/03/19 04/03/19 Unknown History [Folgard Tablet] Active Meds: Active Medications Acetaminophen (Tylenol) 650 mg PO Q4H PRN PRN Reason: Pain MILD(1-3)/Fever >100.5/VIDES Lipase/Protease/Amylase (Pancremino Garnica 10,500 Unit) 1 each FEEDTUBE PRN PRN PRN Reason: For Clogged Feeding Tube Famotidine (Pepcid) 20 mg IV DAILY LEVAR Heparin Sodium (Porcine) (Heparin) 5,000 unit SUB-Q Q12HR LEVAR Last Admin: 04/04/19 10:58 Dose: 5,000 unit Documented by: Hydromorphone HCl (Dilaudid) 0.25 mg IV Q3H PRN PRN Reason: Pain, Moderate (4-6) Norepinephrine (Levophed Drip 4 Mg/Ns 250 Ml) 4 mg in 250 mls @ 7.5 mls/hr IV TITR LEVAR; Protocol Stop: 04/04/19 19:59 Last Admin: 04/04/19 08:29 Dose: 30 mcg/min, 112.5 mls/hr Documented by: Phenylephrine HCl 100 mg/ (Sodium Chloride) 100 mls @ 3 mls/hr IV TITR LEVAR; Protocol Last Titration: 04/04/19 12:45 Dose: 0 mcg/min, 0 mls/hr Documented by: Cefepime HCl (Cefepime/Ns 2 Gm/100 Ml) 2 gm in 100 mls @ 200 mls/hr IV Q24HR LEVAR; Protocol Last Admin: 04/04/19 10:58 Dose: 200 mls/hr Documented by: Norepinephrine 8 mg/ Sodium (Chloride) 250 mls @ 3.75 mls/hr IV TITR LEVAR; Protocol Last Titration: 04/04/19 14:00 Dose: 20 mcg/min, 37.5 mls/hr Documented by: Vasopressin 20 unit/ Sodium (Chloride) 101 mls @ 9.09 mls/hr IV TITR LEVAR; Protocol Last Admin: 04/04/19 10:55 Dose: 0.03 units/min, 9.09 mls/hr Documented by: Dextrose/Sodium Chloride (D5ns) 1,000 mls @ 150 mls/hr IV DIRECT LEVAR Insulin Human Lispro (Humalog) 0 unit SUB-Q Q6HR LEVAR; Protocol Last Admin: 04/04/19 14:13 Dose: 2 unit Documented by: Ondansetron HCl (Zofran) 4 mg IV Q8H PRN PRN Reason: Nausea And Vomiting Oxycodone/Acetaminophen (Percocet 5/325) 1 tab PO Q6H PRN PRN Reason: Pain, Moderate (4-6) Simple Syrup (Simple Syrup) 15 ml FEEDTUBE PRN PRN PRN Reason: Hypoglycemia Simple Syrup (Simple Syrup) 30 ml FEEDTUBE PRN PRN PRN Reason: Hypoglycemia Sodium Bicarbonate (Sodium Bicarbonate) 325 mg FEEDTUBE PRN PRN PRN Reason: For Clogged Feeding Tube Sodium Chloride (Sodium Chloride Flush Syringe 10 Ml) 10 ml IV BID LEVAR Last Admin: 04/04/19 11:00 Dose: 10 ml Documented by: Sodium Chloride (Sodium Chloride Flush Syringe 10 Ml) 10 ml IV PRN PRN PRN Reason: LINE FLUSH Review of Systems Constitutional: fever, no weight loss, no weight gain, no chills Ears, nose, mouth and throat: no deferred, no ear pain, no ear discharge Cardiovascular: palpitations, rapid/irregular heart beat, no chest pain, no orthopnea, no edema Respiratory: no cough, no cough with sputum Gastrointestinal: no abdominal pain, no nausea, no vomiting Genitourinary Male: no dysuria, no hematuria, no flank pain Rectal: no pain, no incontinence Musculoskeletal: no neck stiffness, no neck pain Integumentary: no deferred, no pruritis Neurological: no head injury, no transient paralysis Psychiatric: no anxiety, no memory loss, no change in sleep habits Endocrine: no cold intolerance, no heat intolerance Hematologic/Lymphatic: no easy bruising, no easy bleeding Exam - Vital Signs Vital signs: Vital Signs Pulse Resp 141 H 28 H 04/03/19 13:56 04/03/19 13:56 - General Appearance General appearance: well-developed, well-nourished, frail, anxious EENT: ATNC, PERRL Neck: Present: neck supple Respiratory: Clear to Ascultation Heart: tachycardia, S1S2 Gastrointestinal: Present: normal, normoactive bowel sounds Integumentary: no rash Neurologic: confused, CN 3-12 intact Musculoskeletal: Present: deferred Psychiatric: depressed Results - Lab Results 04/04/19 05:00 04/04/19 05:00 Most recent lab results Calcium 7.5 mg/dL (8.4-10.2) L 04/04/19 05:00 - Image Kidney/bladder ultrasound: other (I reviewed chest x-ray without edema or focal infiltrate) Assessment and Plan - Patient Problems (1) Acute kidney injury Current Visit: Yes Status: Acute Plan to address problem: Acute kidney injury Baseline creatinine unknown Current creatinine 4.3 Etiology secondary to sepsis and hypotension Continue aggressive fluids Avoid nephrotoxic medications (2) Sepsis Current Visit: Yes Status: Acute Plan to address problem: Sepsis Elevated lactate levels Associated SIRS criteria hypotension leukocytosis fever tachycardia Continue antibiotics Infectious disease is following (3) Elevated lactic acid level Current Visit: Yes Status: Acute Plan to address problem: Elevated lactate levels Secondary to underlying sepsis Continue aggressive fluid resuscitation (4) Metabolic acidosis Current Visit: Yes Status: Acute Plan to address problem: Metabolic acidosis secondary to acute kidney injury and lactic acidosis Continue fluid replacement. Also trend Lactate levels
--- NOTE | 2019-04-04 15:26 | Consultation ---
History of Present Illness - Reason for Consult Consult date: 04/04/19 Sepsis, GNR bacteremia Requesting physician: RADHA MARRERO - History of Present Illness The patient is an 83-year-old male with CVA, hypertension, hyperlipidemia, CK- MB, diabetes mellitus, DO NOT RESUSCITATE status was brought into the emergency room by the family due to weakness and decreased responsiveness. Patient was also febrile. Noted to be septic, requiring 2 pressors. 4 historian. ID was consulted for gram-negative bacteremia and septic shock. History was obtained by chart review and discussing with patient's RN at bedside. Review of Systems: limited due to AMS Medications and Allergies Allergies Allergy/AdvReac Type Severity Reaction Status Date / Time levofloxacin [From Levaquin] Allergy Rash Verified 04/03/19 13:53 Home Medications Medication Instructions Recorded Confirmed Last Taken Type Aspirin 325 mg PO QDAY 04/03/19 04/03/19 Unknown History AtorvaSTATin [Lipitor] 40 mg PO QHS 04/03/19 04/03/19 Unknown History B12/Iodin/Mag/Zinc/Haritha/[id number] 1 each PO QDAY 04/03/19 04/03/19 Unknown History [Adrenoid Capsule] Guaifenesin/Pseudoephedrne HCl 1 each PO BID 04/03/19 04/03/19 Unknown History [Mucinex D ER 600-60 mg Tablet] Hyoscyamine Subl [Levsin Sl 0.125 0.125 mg SL Q4HR PRN 04/03/19 04/03/19 Unknown History TAB] Losartan [Cozaar] 25 mg PO QDAY 04/03/19 04/03/19 Unknown History Sertraline [Zoloft] 50 mg PO QDAY 04/03/19 04/03/19 Unknown History Vit D3/Folic Acid/B2/B6/B12 1 each PO QDAY 04/03/19 04/03/19 Unknown History [Folgard Tablet] Active Meds: Active Medications Acetaminophen (Tylenol) 650 mg PO Q4H PRN PRN Reason: Pain MILD(1-3)/Fever >100.5/VIDES Lipase/Protease/Amylase (Pancreaze Dr 10,500 Unit) 1 each FEEDTUBE PRN PRN PRN Reason: For Clogged Feeding Tube Famotidine (Pepcid) 20 mg IV DAILY LEVAR Heparin Sodium (Porcine) (Heparin) 5,000 unit SUB-Q Q12HR LEVAR Last Admin: 04/04/19 10:58 Dose: 5,000 unit Documented by: Hydromorphone HCl (Dilaudid) 0.25 mg IV Q3H PRN PRN Reason: Pain, Moderate (4-6) Norepinephrine (Levophed Drip 4 Mg/Ns 250 Ml) 4 mg in 250 mls @ 7.5 mls/hr IV TITR LEVAR; Protocol Stop: 04/04/19 19:59 Last Admin: 04/04/19 08:29 Dose: 30 mcg/min, 112.5 mls/hr Documented by: Phenylephrine HCl 100 mg/ (Sodium Chloride) 100 mls @ 3 mls/hr IV TITR LEVAR; Protocol Last Titration: 04/04/19 12:45 Dose: 0 mcg/min, 0 mls/hr Documented by: Norepinephrine 8 mg/ Sodium (Chloride) 250 mls @ 3.75 mls/hr IV TITR LEVAR; Protocol Last Titration: 04/04/19 14:00 Dose: 20 mcg/min, 37.5 mls/hr Documented by: Vasopressin 20 unit/ Sodium (Chloride) 101 mls @ 9.09 mls/hr IV TITR LEVAR; Protocol Last Admin: 04/04/19 10:55 Dose: 0.03 units/min, 9.09 mls/hr Documented by: Dextrose/Sodium Chloride (D5ns) 1,000 mls @ 150 mls/hr IV DIRECT LEVAR Cefepime HCl (Cefepime/Ns 1 Gm/100 Ml) 1 gm in 100 mls @ 200 mls/hr IV Q24HR LEVAR; Protocol Insulin Human Lispro (Humalog) 0 unit SUB-Q Q6HR LEVAR; Protocol Last Admin: 04/04/19 14:13 Dose: 2 unit Documented by: Ondansetron HCl (Zofran) 4 mg IV Q8H PRN PRN Reason: Nausea And Vomiting Oxycodone/Acetaminophen (Percocet 5/325) 1 tab PO Q6H PRN PRN Reason: Pain, Moderate (4-6) Simple Syrup (Simple Syrup) 15 ml FEEDTUBE PRN PRN PRN Reason: Hypoglycemia Simple Syrup (Simple Syrup) 30 ml FEEDTUBE PRN PRN PRN Reason: Hypoglycemia Sodium Bicarbonate (Sodium Bicarbonate) 325 mg FEEDTUBE PRN PRN PRN Reason: For Clogged Feeding Tube Sodium Chloride (Sodium Chloride Flush Syringe 10 Ml) 10 ml IV BID LEVAR Last Admin: 04/04/19 11:00 Dose: 10 ml Documented by: Sodium Chloride (Sodium Chloride Flush Syringe 10 Ml) 10 ml IV PRN PRN PRN Reason: LINE FLUSH Physical Examination - Physical Exam Narrative exam: Physical Exam: Constitutional: Alert. No acute distress Head, Ears, Nose: Normocephalic, atraumatic. External ears, nose normal Eyes: Conjunctivae/corneas clear. No icterus. No ptosis. Neck: Supple, no meningeal signs Oral: unable to examine Cardiovascular: S1, S2 normal. Respiratory: Good air entry, clear to auscultation bilaterally GI: Soft, non-tender; bowel sounds normal. No peritoneal signs Musculoskeletal: No pedal edema, no cyanosis. Skin: No rash or abscess Hem/Lymphatic: No palpable cervical or supraclavicular nodes. No lymphangitis Psych: Mood ok. Affect normal Neurological: Awake, alert, oriented. No gross abnormality Lines: R femoral CVL - Constitutional Vitals: Vital Signs Temp Pulse Resp BP Pulse Ox 98.4 F 145 H 34 H 93/59 100 04/04/19 12:00 04/04/19 15:00 04/04/19 15:00 04/04/19 15:00 04/04/19 15:00 Temperature -Last 24 Hours Temperature 98.4 F Temperature 98.0 F Temperature 99.3 F Temperature 100.9 F Temperature 100.0 F Results - Labs CBC & Chem 7: 04/04/19 05:00 04/04/19 05:00 Labs: Abnormal lab results 04/03/19 04/03/19 04/03/19 Range/Units 15:22 15:22 15:22 WBC 12.1 H (4.5-11.0) K/mm3 Hgb 9.2 L (11.8-15.2) gm/dl Hct 31.2 L (35.5-45.6) % MCV 75 L (84-94) fl MCH 22 L (28-32) pg MCHC 29 L (32-34) % RDW 18.2 H (13.2-15.2) % Seg Neuts % (Manual) 84.0 H (40.0-70.0) % Lymphocytes % (Manual) 4.0 L (13.4-35.0) % Seg Neutrophils # Man 10.2 H (1.8-7.7) K/mm3 Lymphocytes # (Manual) 0.5 L (1.2-5.4) K/mm3 POC ABG pH (7.35-7.45) POC ABG pCO2 (35-45) POC ABG pO2 (80-105) Sodium 148 H (137-145) mmol/L Chloride 108.1 H (98-107) mmol/L Carbon Dioxide 19 L (22-30) mmol/L BUN 40 H (9-20) mg/dL Creatinine 3.5 H (0.8-1.5) mg/dL Glucose 104 H (75-100) mg/dL POC Glucose (70-105) Hemoglobin A1c (4-6) % Lactic Acid (0.7-2.0) mmol/L Calcium (8.4-10.2) mg/dL Direct Bilirubin 0.4 H (0-0.2) mg/dL AST 296 H (5-40) units/L ALT 102 H (7-56) units/L Alkaline Phosphatase 218 H (35-129) units/L Total Protein (6.3-8.2) g/dL Albumin 3.1 L (3.9-5) g/dL 04/03/19 04/03/19 04/03/19 Range/Units 15:22 17:43 21:52 WBC (4.5-11.0) K/mm3 Hgb (11.8-15.2) gm/dl Hct (35.5-45.6) % MCV (84-94) fl MCH (28-32) pg MCHC (32-34) % RDW (13.2-15.2) % Seg Neuts % (Manual) (40.0-70.0) % Lymphocytes % (Manual) (13.4-35.0) % Seg Neutrophils # Man (1.8-7.7) K/mm3 Lymphocytes # (Manual) (1.2-5.4) K/mm3 POC ABG pH (7.35-7.45) POC ABG pCO2 (35-45) POC ABG pO2 (80-105) Sodium (137-145) mmol/L Chloride (98-107) mmol/L Carbon Dioxide (22-30) mmol/L BUN (9-20) mg/dL Creatinine (0.8-1.5) mg/dL Glucose (75-100) mg/dL POC Glucose (70-105) Hemoglobin A1c (4-6) % Lactic Acid 9.20 H* 9.40 H* 7.00 H* (0.7-2.0) mmol/L Calcium (8.4-10.2) mg/dL Direct Bilirubin (0-0.2) mg/dL AST (5-40) units/L ALT (7-56) units/L Alkaline Phosphatase (35-129) units/L Total Protein (6.3-8.2) g/dL Albumin (3.9-5) g/dL 04/03/19 04/04/19 04/04/19 Range/Units 21:52 04:51 05:00 WBC (4.5-11.0) K/mm3 Hgb (11.8-15.2) gm/dl Hct (35.5-45.6) % MCV (84-94) fl MCH (28-32) pg MCHC (32-34) % RDW (13.2-15.2) % Seg Neuts % (Manual) (40.0-70.0) % Lymphocytes % (Manual) (13.4-35.0) % Seg Neutrophils # Man (1.8-7.7) K/mm3 Lymphocytes # (Manual) (1.2-5.4) K/mm3 POC ABG pH (7.35-7.45) POC ABG pCO2 (35-45) POC ABG pO2 (80-105) Sodium (137-145) mmol/L Chloride (98-107) mmol/L Carbon Dioxide (22-30) mmol/L BUN (9-20) mg/dL Creatinine (0.8-1.5) mg/dL Glucose (75-100) mg/dL POC Glucose 128 H (70-105) Hemoglobin A1c 6.5 H (4-6) % Lactic Acid 6.00 H* (0.7-2.0) mmol/L Calcium (8.4-10.2) mg/dL Direct Bilirubin (0-0.2) mg/dL AST (5-40) units/L ALT (7-56) units/L Alkaline Phosphatase (35-129) units/L Total Protein (6.3-8.2) g/dL Albumin (3.9-5) g/dL 04/04/19 04/04/19 04/04/19 Range/Units 05:00 05:00 10:07 WBC 31.0 H (4.5-11.0) K/mm3 Hgb 9.2 L (11.8-15.2) gm/dl Hct 30.9 L (35.5-45.6) % MCV 74 L (84-94) fl MCH 22 L (28-32) pg MCHC 30 L (32-34) % RDW 18.4 H (13.2-15.2) % Seg Neuts % (Manual) 92.5 H (40.0-70.0) % Lymphocytes % (Manual) 4.0 L (13.4-35.0) % Seg Neutrophils # Man 28.7 H (1.8-7.7) K/mm3 Lymphocytes # (Manual) (1.2-5.4) K/mm3 POC ABG pH 7.337 L (7.35-7.45) POC ABG pCO2 32.7 L (35-45) POC ABG pO2 363 H (80-105) Sodium (137-145) mmol/L Chloride (98-107) mmol/L Carbon Dioxide 16 L (22-30) mmol/L BUN 53 H (9-20) mg/dL Creatinine 4.3 H (0.8-1.5) mg/dL Glucose 195 H (75-100) mg/dL POC Glucose (70-105) Hemoglobin A1c (4-6) % Lactic Acid (0.7-2.0) mmol/L Calcium 7.5 L (8.4-10.2) mg/dL Direct Bilirubin (0-0.2) mg/dL AST 277 H (5-40) units/L ALT 81 H (7-56) units/L Alkaline Phosphatase 147 H (35-129) units/L Total Protein 6.2 L (6.3-8.2) g/dL Albumin 2.9 L (3.9-5) g/dL 04/04/19 Range/Units 12:18 WBC (4.5-11.0) K/mm3 Hgb (11.8-15.2) gm/dl Hct (35.5-45.6) % MCV (84-94) fl MCH (28-32) pg MCHC (32-34) % RDW (13.2-15.2) % Seg Neuts % (Manual) (40.0-70.0) % Lymphocytes % (Manual) (13.4-35.0) % Seg Neutrophils # Man (1.8-7.7) K/mm3 Lymphocytes # (Manual) (1.2-5.4) K/mm3 POC ABG pH (7.35-7.45) POC ABG pCO2 (35-45) POC ABG pO2 (80-105) Sodium (137-145) mmol/L Chloride (98-107) mmol/L Carbon Dioxide (22-30) mmol/L BUN (9-20) mg/dL Creatinine (0.8-1.5) mg/dL Glucose (75-100) mg/dL POC Glucose (70-105) Hemoglobin A1c (4-6) % Lactic Acid 5.40 H* (0.7-2.0) mmol/L Calcium (8.4-10.2) mg/dL Direct Bilirubin (0-0.2) mg/dL AST (5-40) units/L ALT (7-56) units/L Alkaline Phosphatase (35-129) units/L Total Protein (6.3-8.2) g/dL Albumin (3.9-5) g/dL - Imaging and Cardiology Chest x-ray: report reviewed, image reviewed (Chest x-ray does not show any obvious pneumonia) Assessment and Plan Cultures: 04/04/2019 blood culture: Gram-negative rods A/P: 83-year-old male with CVA, hypertension, hyperlipidemia, CK-MB, diabetes mellitus, DO NOT RESUSCITATE status was brought into the emergency room by the family due to weakness and decreased responsiveness with: #Septic shock, POA: on multiple pressors. #Gram-negative bacteremia: ?source urine v/s hepatobiliary #Lactic acidosis #Elevated LFTs: ?sepsis related. Abdominal US ordered. #Acute renal failure: Renally dose antibiotics Recs: UA, urine culture renally adjusted IV Cefepime 1 gm daily Abdominal US to eval elevated LFTs and also renal system follow up blood cultures Vancomycin discontinued d/w Dr. Dana Ellington MD, FACP [facility] ([facility]) C: [phone] O: [phone] F: [phone]
[2019-04-04 17:33] LABS: Bilirubin,Urine NEG (Negative); Blood,Urine LG (Negative); Urobilinogen,Urine < 2.0 mg/dL (<2.0)
[2019-04-04 17:34] LABS: Color,Urine Yellow (Yellow); RBC,Urine > 182.0 /HPF (0.0-6.0)
[2019-04-04] MEDS: D5W/0.9% NACL 1,000 ML IV SCH (19:54)
[2019-04-05] MEDS: INSULIN LISPRO 100 UNIT/ML SUB-Q SCH ×2 (02:55→07:53)
[2019-04-05] MEDS: D5W/0.9% NACL 1,000 ML IV SCH (02:55)
--- NOTE | 2019-04-05 06:41 | Ultrasound Report ---
ULTRASOUND ABDOMEN, COMPLETE INDICATION: elevated LFTs, renal failure. COMPARISON: No relevant prior imaging study available. FINDINGS: Pancreas: Not well visualized. Abdominal Aorta: No significant abnormality. IVC: No significant abnormality. Liver: No significant abnormality. Gallbladder: Small stones/sludge is noted without additional significant abnormalities. Bile ducts: No significant abnormality. Common bile duct measures 3 mm. Right kidney: A right upper renal pole cyst measures 5.3 x 2.4 x 3.1 cm. There is increased cortical echotexture. No additional significant abnormality. Left kidney: Increased cortical echotexture without an additional significant abnormality. Spleen: No significant abnormality. Free fluid: None. Additional Findings: None. IMPRESSION: 1. Cholelithiasis/sludge without sonographic evidence of acute cholecystitis. 2. Right renal cyst as above with findings consistent with renal failure. Signer Name: Shady Saunders MD Signed: 04/05/2019 6:36 AM Workstation Name: [id number]
[2019-04-05] MEDS: PHENYLEPHRINE 100 MG in SODIUM CHLORIDE 0.9% 90 ML IV SCH (07:23)
--- NOTE | 2019-04-05 09:40 | Progress Note ---
Assessment and Plan Severe sepsis with septic shock Metabolic/lactic acidosis Acute on chronic renal failure Acute and chronic toxic-metabolic encephaloapthy GNR bacteremia Subjective Date of service: 04/05/19 Interval history: Patient this morning. Family at the bedside Objective Vital Signs - 12hr 04/04/19 04/04/19 04/04/19 21:45 22:00 22:16 Temperature Pulse Rate 152 H 147 H 112 H Pulse Rate [ From Monitor] Respiratory 41 H 30 H 33 H Rate Blood Pressure 116/71 120/66 120/66 O2 Sat by Pulse Oximetry 04/04/19 04/04/19 04/04/19 22:30 22:45 23:00 Temperature Pulse Rate 104 H 105 H 109 H Pulse Rate [ From Monitor] Respiratory 34 H 40 H 32 H Rate Blood Pressure 110/68 122/68 127/67 O2 Sat by Pulse Oximetry 04/04/19 04/04/19 04/04/19 23:15 23:16 23:30 Temperature Pulse Rate 105 H 104 H 105 H Pulse Rate [ From Monitor] Respiratory 33 H 33 H 35 H Rate Blood Pressure 116/60 116/60 108/63 O2 Sat by Pulse Oximetry 04/04/19 04/05/19 04/05/19 23:45 00:00 00:15 Temperature Pulse Rate 107 H 106 H 106 H Pulse Rate [ 106 H From Monitor] Respiratory 30 H 31 H 32 H Rate Blood Pressure 106/65 109/58 104/65 O2 Sat by Pulse 95 Oximetry 04/05/19 04/05/19 04/05/19 00:25 00:30 00:45 Temperature 98.7 F Pulse Rate 104 H 104 H Pulse Rate [ From Monitor] Respiratory 31 H 37 H Rate Blood Pressure 102/61 105/58 O2 Sat by Pulse Oximetry 04/05/19 04/05/19 04/05/19 00:49 01:00 01:15 Temperature Pulse Rate 104 H 104 H 105 H Pulse Rate [ From Monitor] Respiratory 34 H 36 H 39 H Rate Blood Pressure 105/58 109/67 111/71 O2 Sat by Pulse 99 99 100 Oximetry 04/05/19 04/05/19 04/05/19 01:30 01:45 02:00 Temperature Pulse Rate 107 H 107 H 108 H Pulse Rate [ From Monitor] Respiratory 34 H 34 H 39 H Rate Blood Pressure 114/64 120/72 105/73 O2 Sat by Pulse 55 L 55 L 79 L Oximetry 04/05/19 04/05/19 04/05/19 02:15 02:30 02:45 Temperature Pulse Rate 109 H 110 H 108 H Pulse Rate [ From Monitor] Respiratory 35 H 27 H 34 H Rate Blood Pressure 117/77 113/67 115/60 O2 Sat by Pulse 51 L 62 L 99 Oximetry 04/05/19 04/05/19 04/05/19 03:00 03:15 03:30 Temperature Pulse Rate 112 H 115 H 113 H Pulse Rate [ From Monitor] Respiratory 32 H 31 H 30 H Rate Blood Pressure 126/67 127/58 127/58 O2 Sat by Pulse 53 L 50 L 49 L Oximetry 04/05/19 04/05/19 04/05/19 03:45 04:00 04:15 Temperature Pulse Rate 106 H 107 H Pulse Rate [ 104 H From Monitor] Respiratory 40 H 36 H Rate Blood Pressure 92/53 92/53 108/63 O2 Sat by Pulse 94 95 95 Oximetry 04/05/19 04/05/19 04/05/19 04:30 04:45 05:00 Temperature Pulse Rate 107 H 106 H 106 H Pulse Rate [ From Monitor] Respiratory 41 H 38 H 44 H Rate Blood Pressure 107/63 108/63 108/64 O2 Sat by Pulse 94 95 Oximetry 04/05/19 04/05/19 04/05/19 05:15 05:30 05:45 Temperature Pulse Rate 103 H 102 H 103 H Pulse Rate [ From Monitor] Respiratory 34 H 36 H 41 H Rate Blood Pressure 94/60 89/55 96/57 O2 Sat by Pulse 98 100 Oximetry 04/05/19 04/05/19 04/05/19 06:00 06:15 06:30 Temperature Pulse Rate 105 H 105 H 106 H Pulse Rate [ From Monitor] Respiratory 41 H 42 H 37 H Rate Blood Pressure 108/63 107/65 106/65 O2 Sat by Pulse 98 99 97 Oximetry 04/05/19 04/05/19 04/05/19 06:45 07:00 07:15 Temperature Pulse Rate 107 H 108 H 107 H Pulse Rate [ From Monitor] Respiratory 44 H 42 H 38 H Rate Blood Pressure 112/65 99/62 108/63 O2 Sat by Pulse 96 99 100 Oximetry 04/05/19 04/05/19 04/05/19 07:30 07:45 08:00 Temperature 99.7 F H Pulse Rate 108 H 110 H 113 H Pulse Rate [ 108 H From Monitor] Respiratory 40 H 39 H 39 H Rate Blood Pressure 102/63 112/66 118/69 O2 Sat by Pulse 98 96 95 Oximetry 04/05/19 08:15 Temperature Pulse Rate 113 H Pulse Rate [ From Monitor] Respiratory 38 H Rate Blood Pressure 111/62 O2 Sat by Pulse 93 Oximetry CBC and BMP: 04/04/19 05:00 04/04/19 05:00 ABG, PT/INR, D-dimer: ABG POC ABG pH 7.337 (7.35-7.45) L 04/04/19 10:07 POC ABG pCO2 32.7 (35-45) L 04/04/19 10:07 POC ABG pO2 363 (80-105) H 04/04/19 10:07 POC ABG HCO3 17.5 (22-26 mml/L) 04/04/19 10:07 POC ABG Total CO2 18 (23-27mmol/L) 04/04/19 10:07 POC ABG O2 Sat 100 04/04/19 10:07 Abnormal lab findings: Abnormal Labs 04/03/19 04/03/19 04/03/19 15:22 15:22 15:22 WBC 12.1 H Hgb 9.2 L Hct 31.2 L MCV 75 L MCH 22 L MCHC 29 L RDW 18.2 H Seg Neuts % (Manual) 84.0 H Lymphocytes % (Manual) 4.0 L Seg Neutrophils # Man 10.2 H Lymphocytes # (Manual) 0.5 L POC ABG pH POC ABG pCO2 POC ABG pO2 Sodium 148 H Chloride 108.1 H Carbon Dioxide 19 L BUN 40 H Creatinine 3.5 H Glucose 104 H POC Glucose Hemoglobin A1c Lactic Acid Calcium Direct Bilirubin 0.4 H AST 296 H ALT 102 H Alkaline Phosphatase 218 H Total Protein Albumin 3.1 L Urine WBC (Auto) 04/03/19 04/03/19 04/03/19 15:22 17:43 21:52 WBC Hgb Hct MCV MCH MCHC RDW Seg Neuts % (Manual) Lymphocytes % (Manual) Seg Neutrophils # Man Lymphocytes # (Manual) POC ABG pH POC ABG pCO2 POC ABG pO2 Sodium Chloride Carbon Dioxide BUN Creatinine Glucose POC Glucose Hemoglobin A1c Lactic Acid 9.20 H* 9.40 H* 7.00 H* Calcium Direct Bilirubin AST ALT Alkaline Phosphatase Total Protein Albumin Urine WBC (Auto) 04/03/19 04/04/19 04/04/19 21:52 04:51 05:00 WBC Hgb Hct MCV MCH MCHC RDW Seg Neuts % (Manual) Lymphocytes % (Manual) Seg Neutrophils # Man Lymphocytes # (Manual) POC ABG pH POC ABG pCO2 POC ABG pO2 Sodium Chloride Carbon Dioxide BUN Creatinine Glucose POC Glucose 128 H Hemoglobin A1c 6.5 H Lactic Acid 6.00 H* Calcium Direct Bilirubin AST ALT Alkaline Phosphatase Total Protein Albumin Urine WBC (Auto) 04/04/19 04/04/19 04/04/19 05:00 05:00 10:07 WBC 31.0 H Hgb 9.2 L Hct 30.9 L MCV 74 L MCH 22 L MCHC 30 L RDW 18.4 H Seg Neuts % (Manual) 92.5 H Lymphocytes % (Manual) 4.0 L Seg Neutrophils # Man 28.7 H Lymphocytes # (Manual) POC ABG pH 7.337 L POC ABG pCO2 32.7 L POC ABG pO2 363 H Sodium Chloride Carbon Dioxide 16 L BUN 53 H Creatinine 4.3 H Glucose 195 H POC Glucose Hemoglobin A1c Lactic Acid Calcium 7.5 L Direct Bilirubin AST 277 H ALT 81 H Alkaline Phosphatase 147 H Total Protein 6.2 L Albumin 2.9 L Urine WBC (Auto) 04/04/19 04/04/19 04/04/19 12:15 12:18 16:03 WBC Hgb Hct MCV MCH MCHC RDW Seg Neuts % (Manual) Lymphocytes % (Manual) Seg Neutrophils # Man Lymphocytes # (Manual) POC ABG pH POC ABG pCO2 POC ABG pO2 Sodium Chloride Carbon Dioxide BUN Creatinine Glucose POC Glucose 188 H Hemoglobin A1c Lactic Acid 5.40 H* Calcium Direct Bilirubin AST ALT Alkaline Phosphatase Total Protein Albumin Urine WBC (Auto) 59.0 H 04/04/19 04/04/19 04/05/19 18:00 21:44 02:22 WBC Hgb Hct MCV MCH MCHC RDW Seg Neuts % (Manual) Lymphocytes % (Manual) Seg Neutrophils # Man Lymphocytes # (Manual) POC ABG pH POC ABG pCO2 POC ABG pO2 Sodium Chloride Carbon Dioxide BUN Creatinine Glucose POC Glucose 148 H 132 H Hemoglobin A1c Lactic Acid 4.60 H* Calcium Direct Bilirubin AST ALT Alkaline Phosphatase Total Protein Albumin Urine WBC (Auto) 04/05/19 04/05/19 04/05/19 05:05 06:36 07:35 WBC Hgb Hct MCV MCH MCHC RDW Seg Neuts % (Manual) Lymphocytes % (Manual) Seg Neutrophils # Man Lymphocytes # (Manual) POC ABG pH POC ABG pCO2 POC ABG pO2 Sodium Chloride Carbon Dioxide BUN Creatinine Glucose POC Glucose 126 H Hemoglobin A1c Lactic Acid 3.90 H* 3.60 H* Calcium Direct Bilirubin AST ALT Alkaline Phosphatase Total Protein Albumin Urine WBC (Auto)
[2019-04-05] MEDS ORDERED: FAMOTIDINE 20 MG/2 ML INJ IV SCH (10:00)
[2019-04-05] MEDS ORDERED: CEFEPIME/NS 1 GM/100 ML 1 GM/100 ML BAG IV SCH (10:00)
--- NOTE | 2019-04-05 10:05 | XRay Report ---
CHEST 1 VIEW INDICATION: f/u pneumonia. COMPARISON: 04/03/2019 FINDINGS: Support devices: None. Heart: Within normal limits. Pulmonary vasculature: Normal. Lungs/Pleura: Mild streaky opacities in the right middle lobe are consistent with normal vessels and mild atelectasis. The right lung is otherwise clear. Increased opacification in the left lower lobe w ith silhouetting of the left hemidiaphragm and air bronchograms. The left upper lobe is clear. No ple ural effusion. Additional findings: None. IMPRESSION: 1. Left lower lobe pneumonia with greater consolidation since the last exam 2. No right pneumonia. Signer Name: Stefan Villatoro MD Signed: 04/05/2019 10:00 AM Workstation Name: [id number]
--- NOTE | 2019-04-05 10:08 | Event Note ---
Date: 04/05/19 Nurse reported that patient at 9:27 am asystole on the monitor When I examined patient has no cardio pulmonary activity Pupils dilated and fixed,Family at the bed side Pronounced at 09:55 am Time of 09:27 am
--- NOTE | 2019-04-05 10:11 | Death Summary ---
Summary - Providers Date of service: 04/05/19 Consults: 04/04/19 07:57 Consult to Physician [CONS] Routine Comment: Consulting Provider: KENYETTA RASMUSSEN Physician Instructions: Reason For Exam: septic shock/ Cr care consult 04/04/19 08:05 Consult to Physician [CONS] Routine Comment: Consulting Provider: PALMIRA MESA Physician Instructions: Reason For Exam: FRANCESCA/CKD 04/04/19 14:29 Consult to Dietitian/Nutrition [CONS] Routine Physician Instructions: Reason For Exam: Reason for Consult: Write/Manage Tube Feeding 04/04/19 15:20 Consult to Physician [CONS] Routine Comment: Consulting Provider: BILLIE BENSON Physician Instructions: Reason For Exam: Gm neg sepsis/septic shock/linda pneumonia Attending: RADHA MARRERO - summary Date of admission: 04/03/19 16:46 Date of : 04/05/19 (at 09:27 am) Significant findings: --Gram neg Sepsis: --Sepsis Shock Current Visit: Yes Status: Acute secondary to bilateral pneumonia IV fluids Started, IV cefepime and IV vancomycin IV Levophed started --Bilateral pneumonia ; Current Visit: Yes Status: Acute Empiric IV antibiotics, follow cultures Oxygen titrated to O2 sats more than 90%. ID evaluation if needed --lactic acidosis: Secondary to sepsis closely monitor. --Transaminitis; Unknown baseline probably secondary to hypo perfusion Closely monitor liver function tests. --Acute on chronic renal failure Closely monitor renal function avoid nephrotoxins --Severe Malnutrition; Nutrition supplements and supportive care -- Hypernatremia Current Visit: Yes Status: Acute D5W for now, improved , closely monitor --DNR status Monitor clinically and adjust management as needed. Patient is critically ill. poor Prognosis Follow-up consults and recommendations
[2019-04-05 12:17] VITALS: BP 127/72
== END 2019-04-05 14:00 | DRG 871 ==
LOC: ED 13:51 → 2B-ACE 16:46 → CC1 19:59
PROVIDERS: ADMIT Internal Medicine; ATTEND Internal Medicine
PROC: 06HY33Z Insertion of Infusion Device into Lower Vein, Percutaneous Approach (ICD-10-PCS; principal; 2019-04-03)
PROC: 4A033R1 Measurement of Arterial Saturation, Peripheral, Percutaneous Approach (ICD-10-PCS; 2019-04-04)
PROC: 5A09357 Assistance with Respiratory Ventilation, Less than 24 Consecutive Hours, Continuous Positive Airway Pressure (ICD-10-PCS; 2019-04-04)
PROC: 5A09357 Assistance with Respiratory Ventilation, Less than 24 Consecutive Hours, Continuous Positive Airway Pressure (ICD-10-PCS; 2019-04-05)
DX: A41.59 Other Gram-negative sepsis (principal); R65.21 Severe sepsis with septic shock; G92 Toxic encephalopathy; E43 Unspecified severe protein-calorie malnutrition; J18.9 Pneumonia, unspecified organism; E87.0 Hyperosmolality and hypernatremia; N17.9 Acute kidney failure, unspecified; E78.5 Hyperlipidemia, unspecified; E11.22 Type 2 diabetes mellitus with diabetic chronic kidney disease; I12.9 Hypertensive chronic kidney disease with stage 1 through stage 4 chronic kidney disease, or unspecified chronic kidney disease; Z66 Do not resuscitate; I46.9 Cardiac arrest, cause unspecified; F03.90 Unspecified dementia, unspecified severity, without behavioral disturbance, psychotic disturbance, mood disturbance, and anxiety; H54.61 Unqualified visual loss, right eye, normal vision left eye; Z82.49 Family history of ischemic heart disease and other diseases of the circulatory system; Z86.73 Personal history of transient ischemic attack (TIA), and cerebral infarction without residual deficits; Z79.82 Long term (current) use of aspirin; Z79.899 Other long term (current) drug therapy; Z88.1 Allergy status to other antibiotic agents; Z68.24 Body mass index [BMI] 24.0-24.9, adult
CPT/HCPCS: 36415; 36600; 71045; 76700; 80048; 80053; 80076; 81001; 82140; 82803; 82962; 83036; 85007; 85025; 87040; 87076; 87086; 87186; 93005; 93010; 94660; 96365; G0378; J0692; J1644; J1815; J2370; J2543; J3370; J7030; J7040; J7042; J7050; J7070; J7120